=== PATIENT | female | born 1990 | race African-American/Black ===

== ENCOUNTER 2022-10-10 18:47 | Emergency (ER) | payer MEDICAID, OTHER ==
[~2022-10-10] VITALS: Ht 170.2 cm; Wt 52.0 kg
[~2022-10-10 18:47] MED LIST: DOCU-138 PO; FERR325T23 PO; POLY17PO3 PO
[2022-10-10 21:54] VITALS: BP 102/63
== END 2022-10-10 21:55 | disposition home or self-care (01) ==
LOC: ER 18:47
DX: R55 Syncope and collapse (principal)
CPT/HCPCS: 82962; 93005; 99283

== ENCOUNTER 2024-10-26 19:27 | Emergency (ER) | payer MEDICAID ==
[~2024-10-26] VITALS: Ht 170.2 cm; Wt 48.1 kg
[2024-10-26 19:38] VITALS: O2SAT 99
[2024-10-26 19:46] VITALS: BP 126/75; PULSE 89; RESP 18; TEMP 37.6; O2SAT 100
[2024-10-26] MEDS: KETOROLAC 30MG/ML VIAL IM ONE (20:57)
== END 2024-10-26 21:35 | disposition home or self-care (01) ==
LOC: ER 19:27
DX: M54.30 Sciatica, unspecified side (principal)
CPT/HCPCS: 99283; 96372; J1885